=== PATIENT | female | born 1995 | race Caucasian/White ===

== ENCOUNTER 2016-06-13 10:23 | Emergency (ER) | payer OTHER ==
[2016-06-13 13:19] VITALS: BP 112/79
--- NOTE | 2016-06-13 13:57 | UC ---
Frederick Stringer Billy, scribed for Lori Perez DO on 06/13/16 at 1256 . General HPI - HPI Summary HPI Summary: Patient is a 21 year-old female coming to [facility] presenting with flu-like symptoms starting 5 days ago. Patient states that her symptoms began with nasal congestion and nonproductive chest cough. The following day, she developed a subjective fever, diffuse myalgia, nasal congestion, rhinorrhea, sore throat, and frontal headache. She also reports SOB, stating that her cough is worse with deep breaths. Sore throat is worse with swallowing. She states that she began to feel nauseated this morning, and had an episode of emesis after coughing. She denies any ear pain, or hemoptysis. Denies any abdominal pain or diarrhea. Patient has taken Tylenol for her symptoms, but without any improvement. She states she has not had any recent flu vaccines. Patient is a smoker, smoking 1 PPD. Patient admits to having suicidal ideation and plans to do so yesterday. She states that she has had recent stressors in "life and school." She lives with her friend. States that she knows she needs help but doesnt know who to talk to. is agreaable with transfer to ed for psych eval. - History of Current Complaint Chief Complaint: UCGeneralIllness Stated Complaint: COUGH Time Seen by Provider: 06/13/16 12:36 Hx Obtained From: Patient Onset/Duration: Gradual Onset, Lasting Days, Still Present Timing: Constant Onset Severity: Moderate Current Severity: Moderate Pain Location at: headache, sore throat, diffuse myalgia Aggravating: cough is worse with deep breaths, sore throat worse with swallowing Alleviating: nothing Associated Signs & Symptoms: Positive: Cough, Diaphoresis, Fever, Headache, Nausea, SOB, Vomiting, Other - diffuse myalgia, nasal congestion, rhinorrhea, sore throat, fatigue. Negative: Abdominal Pain, Back Pain, Chest Pain, Diarrhea , Dysuria, Hematemesis, Hemoptysis - Allergy/Home Medications Allergies/Adverse Reactions: Allergies Allergy/AdvReac Type Severity Reaction Status Date / Time Latex Allergy Rash Verified 06/13/16 12:03 Home Medications: Home Medications Acetaminophen [Extra Strength Acetaminop] 2 tab PO PRN 06/13/16 [History] Unknown Antibiotic 06/13/16 [History] PMH/Surg Hx/FS Hx/Imm Hx Previously Healthy: Yes Endocrine History Of: Denies: Diabetes, Thyroid Disease Cardiovascular History Of: Denies: Cardiac Disorders, Hypertension Respiratory History Of: Denies: COPD, Asthma GI/ History Of: Denies: Ulcer - Surgical History Surgical History: Yes Surgery Procedure, Year, and Place: Appendectomy, T & A - Family History Known Family History: Positive: Hypertension, Diabetes - Social History Occupation: Student Alcohol Use: Occasionally Alcohol Amount: couple times per month Substance Use Type: Marijuana Smoking Status (MU): Heavy Every Day Tobacco Smoker Type: Cigarettes Amount Used/How Often: 1 ppd Household Exposure Type: Cigarettes Cessation Counseling: Counseled 3+Min - 10 Min - Immunization History Most Recent Influenza Vaccination: season Review of Systems Constitutional: Fever, Fatigue Skin: Negative Eyes: Negative ENT: Sore Throat, Nasal Discharge Respiratory: Shortness Of Breath, Cough Cardiovascular: Negative Gastrointestinal: Vomiting, Other - nauseated Genitourinary: Negative Motor: Negative Neurovascular: Negative Musculoskeletal: Myalgia Neurological: Headache Psychological: Other - suicidal ideation and planning All Other Systems Reviewed And Are Negative: Yes Physical Exam Triage Information Reviewed: Yes Appearance: Well-Appearing, No Pain Distress, Well-Nourished Vital Signs: Initial Vital Signs Temp 100.0 F 06/13/16 11:50 Pulse 102 06/13/16 11:50 Resp 19 06/13/16 11:50 BP 123/83 06/13/16 11:50 Pulse Ox 100 06/13/16 11:50 Vital Signs Reviewed: Yes Eyes: Positive: Conjunctiva Clear. Negative: Discharge ENT: Positive: Hearing grossly normal, Pharyngeal erythema, Nasal congestion, TMs normal, Other: - Palette is symmetrical. Sinus tenderness over the maxillary sinuses.. Negative: Muffled/hoarse voice Neck: Positive: Supple, Tenderness @, Enlarged Nodes @ - cervical Respiratory: Positive: Lungs clear, Normal breath sounds, No respiratory distress, No accessory muscle use, Expiration - Prolonged expiration. Cardiovascular: Positive: RRR, No Murmur Musculoskeletal Exam: Normal Neurological: Positive: Alert, Muscle Tone Normal Psychological: Positive: Age Appropriate Behavior, Consolable - Tearful but consolable. Overwhelmed. Skin Exam: Normal Course/Dx - Differential Dx - Multi-Symptom Provider Diagnoses: sinusitis, bronchospasm - Physician Notifications Discussed Patient Care With: INDER Simental ([facility]) @ [id number]: accepts transfer to the ED. Instructed by Provider To: Transfer Discharge - Discharge Plan Condition: Stable Disposition: TRANS HIGHER LVL OF CARE FAC Prescriptions: Albuterol HFA INHALER* [Ventolin HFA Inhaler*] 2 puff INH Q4H PRN #1 mdi PRN Reason: Sob/Wheezing Amoxicillin/Clavulanate TAB* [Augmentin TAB 875*] 875 mg PO BID #20 tab guaiFENesin ER TAB [Mucinex*] 600 mg PO BID PRN #1 box PRN Reason: Cough Patient Education Materials: Sinusitis (ED), Bronchospasm (ED) Referrals: Nirali Miller DO [Primary Care Provider] - (FOLLOW UP IN 3-5 DAYS IF NOT IMPROVING.) Additional Instructions: TRY USING THE NETTI POT IN THE MORNINGS DISCUSSED. YOU MUST ALWAYS USE CLEAN WATER. REMEMBER, POSTURE IS AN IMPORTANT FACTOR IN SINUS DRAINAGE. MOVE YOUR NECK, BREATHE. INHALED BRONCHODILATORS: You have received a prescription for an inhaled bronchodilator -- a medication which stimulates the airways in the lung to dilate. This improves the flow of air in asthma, bronchitis, and emphysema. These medicines have some similarity to adrenaline, and can cause similar side effects: shakiness, racing heart, and a sense of nervousness. These side effects decrease with time. Contact your doctor if these side effects are severe. Do not over-use the medicine. Too-frequent use of the inhaler may make it ineffective. Call your doctor if the inhaler is not controlling your symptoms at the prescribed doses. EXPECTORANT MEDICATION: An expectorant medicine has been prescribed. This type of drug makes mucous thinner, helping the sinuses, nose, and bronchial tubes to remain free of pus and mucous. Expectorants make a cough less severe and more comfortable, and help infected sinuses drain. In general, antihistamines defeat the purpose of the expectorant by making mucous thicker. They should be avoided unless specifically recommended by your physician. ANTIBIOTICS ARE NOT CURRENTLY INDICATED FOR YOUR CONDITION. HOWEVER IF YOUR SYMPTOMS WORSEN OR PERSIST FOR MORE THAN 2-4 DAYS, YOU CAN START THE FOLLOWING ANTIBIOTIC: AUGMENTIN: Augmentin is a mixture of amoxicillin and clavulanate. Amoxicillin is a member of the penicillin family. It covers the germs likely to cause ear, bronchial, and urinary infections better than plain penicillin. The addition of clavulanate allows it to cover staph infections of the skin, as well as resistant cases of ear and sinus infections. Your physician has chosen Augmentin for you because of the special nature of your situation. Augmentin is best taken with meals. Nausea after taking the medication is rare, but can occur. Diarrhea can occur, particularly in small children. Vaginal yeast infections, and oral thrush in infants are also common. Contact your physician if these problems occur. Allergy to penicillins is common. If you have had an allergic reaction to any drug of the penicillin family, you should never take any other penicillin. Notify your doctor at once if you develop hives, shortness of breath, swelling, or faintness. ANY TIME YOU TAKE AN ANTIBIOTIC, IT IS IMPORTANT TO REPLENISH THE BODY'S BALANCE OF "GOOD" BACTERIA BY EATING HIGH QUALITY CULTURED FOOD SUCH YOGURT, SAURKRAUT OR LOIS CHI AND/OR TAKING A PROBIOTIC SUPPLEMENT. The documentation as recorded by the Frederick campa Billy accurately reflects the service I personally performed and the decisions made by , Lori Perez DO.
== END 2016-06-13 13:44 | disposition short-term general hospital (02) ==
LOC: UCEAST 10:23
DX: J32.9 Chronic sinusitis, unspecified (principal); J98.01 Acute bronchospasm; F17.210 Nicotine dependence, cigarettes, uncomplicated
CPT/HCPCS: 87502; 87651; 99213; G0463

== ENCOUNTER → 2016-06-13 14:09 | Emergency (ER) | payer OTHER ==
[~2016-06-13 14:09] MED LIST: Albuterol HFA INHALER* 8 gm MDI INH PRN; Amoxicillin/Clavulanate TAB* 875 MG PO SCH; Mouth Piece, Nicotine* 1 EACH CARTRIDGE INH PRN; Nicotine Inhaler* 10 MG AMP INH PRN; guaiFENesin ER TAB 600 MG PO ONE
[2016-06-13 14:55] LABS: Hematocrit 38 % (35-47); Hemoglobin 12.9 g/dl (12.0-16.0); Mean Corpuscular HGB Conc 33 g/dl (31-36); Mean Corpuscular Hemoglobin 30 pg (27-31); Mean Corpuscular Volume 91 fL (80-97); Mean Platelet Volume 8 um3 (7.4-10.4); Red Blood Count 4.25 10^6/ul (4.0-5.4); Red Cell Distribution Width 13 % (10.5-15); White Blood Count 5.5 10^3/ul (3.5-10.8)
[2016-06-13 15:13] LABS: ALT 15 U/L (7-52); AST 20 U/L (13-39); Albumin 4.5 g/dL (3.2-5.2); Alkaline Phosphatase 55 U/L (34-104); Anion Gap 4 mmol/L (2-11); BUN/Creatinine Ratio 9.8 (8-20); Blood Urea Nitrogen 6 mg/dL (6-24); CO2 Carbon Dioxide 27 mmol/L (22-32); Calcium 9.5 mg/dL (8.6-10.3); Chloride 105 mmol/L (101-111); EGFR African American 160.8 (>60); Globulin 2.8 g/dL (2-4); Glucose 96 mg/dL (70-100); Potassium 3.9 mmol/L (3.5-5.0); Sodium 136 mmol/L (133-145); Total Protein 7.3 g/dL (6.4-8.9)
[2016-06-13 15:23] LABS: Acetaminophen < 15 mcg/mL; Alcohol < 10 mg/dL (<10); Salicylate < 2.50 mg/dL (<30)
[2016-06-13 15:32] LABS: TSH (Thyroid Stimulating Horm) 2.57 mcIU/mL (0.34-5.60)
[2016-06-13 16:15] VITALS: BP 127/57
[2016-06-13 17:51] LABS: Urine Bacteria Absent (Absent); Urine Bilirubin Negative (Negative); Urine Glucose Negative (Negative); Urine Nitrite Negative (Negative)
[2016-06-13 18:00] LABS: Benzodiazepine Urine Screen None Detected (None Detect)
--- NOTE | 2016-07-13 21:12 | ED ---
Jett Stringer Aidan, scribed for Felipe Bae MD on 06/13/16 at 1451 . Psychiatric Complaint - HPI Summary HPI Summary: 21 y/o female presents to the ED with a request to be evaluated by mental health. She denies having had any drugs or alcohol. Additionally, the patient has a complaint of sinnusitis - History Of Current Complaint Chief Complaint: EDMentalHealth Time Seen by Provider: 06/13/16 14:24 Hx Obtained From: Patient Hx Last Menstrual Period: 06/11/16 ?: No Onset/Duration: Sudden Onset, Still Present Timing: Intermittent Episode Lasting Severity Initially: Moderate Severity Currently: Moderate Character: Depressed Aggravating Factor(s): Other - unknown Alleviating Factor(s): Other - unknown Associated Signs And Symptoms: Negative: Negative - sinnusitis - Risk Factor(s) Completed Suicide Risk Factors: White [place] - Allergies/Home Medications Allergies/Adverse Reactions: Allergies Allergy/AdvReac Type Severity Reaction Status Date / Time Latex Allergy Rash Verified 06/13/16 12:03 PMH/Surg Hx/FS Hx/Imm Hx Endocrine/Hematology History: Denies: Hx Diabetes, Hx Thyroid Disease Cardiovascular History: Denies: Hx Hypertension Respiratory History: Denies: Hx Asthma, Hx Chronic Obstructive Pulmonary Disease (COPD) GI History: Denies: Hx Ulcer - Surgical History Surgery Procedure, Year, and Place: Appendectomy, T & A Infectious Disease History: Reports: History Other Infectious Disease - [place] Denies: Hx Clostridium Difficile, Hx Hepatitis, Hx Human Immunodeficiency Virus (HIV), Hx of Known/Suspected MRSA, Hx Shingles, Hx Tuberculosis, Hx Known/ Suspected VRE, Hx Known/Suspected VRSA, Traveled Outside the in Last 30 Days - Family History Known Family History: Positive: None, Hypertension, Diabetes - Social History Alcohol Use: Occasionally Alcohol Amount: couple times per month Substance Use Type: Reports: Marijuana Smoking Status (MU): Heavy Every Day Tobacco Smoker Type: Cigarettes Amount Used/How Often: 1 ppd Review of Systems Constitutional: Negative Eyes: Negative ENT: Other - sinnusitis Cardiovascular: Negative Respiratory: Negative Gastrointestinal: Negative Genitourinary: Negative Musculoskeletal: Negative Skin: Negative Neurological: Negative Positive: Depressed All Other Systems Reviewed And Are Negative: Yes Physical Exam Triage Information Reviewed: Yes Vital Signs On Initial Exam: Initial Vitals Temp Pulse Resp BP Pulse Ox 99.6 F 81 18 127/57 96 06/13/16 16:13 06/13/16 16:13 06/13/16 16:13 06/13/16 16:13 06/13/16 16:13 Appearance: Positive: Well-Appearing, No Pain Distress Skin: Positive: Warm, Skin Color Reflects Adequate Perfusion, Dry Head/Face: Positive: Normal Head/Face Inspection Eyes: Positive: EOMI, MELONY ENT: Positive: Normal ENT inspection Neck: Positive: Supple, Nontender Respiratory/Lung Sounds: Positive: Clear to Auscultation, Breath Sounds Present Cardiovascular: Positive: RRR Abdomen Description: Positive: Nontender, Soft Bowel Sounds: Positive: Present Musculoskeletal: Positive: Normal, Strength/ROM Intact Neurological: Positive: Normal, Sensory/Motor Intact, Alert, Oriented to Person Place, Time Psychiatric: Positive: Normal, Depressed. Negative: Affect/Mood Appropriate Diagnostics - Vital Signs Vital Signs Temp Pulse Resp BP Pulse Ox 06/13/16 16:13 99.6 F 81 18 127/57 96 - Laboratory Lab Results: Lab Results 06/13/16 06/13/16 06/13/16 Range/Units 14:38 14:38 17:30 WBC 5.5 (3.5-10.8) 10^3/ul RBC 4.25 (4.0-5.4) 10^6/ul Hgb 12.9 (12.0-16.0) g/dl Hct 38 (35-47) % MCV 91 (80-97) fL MCH 30 (27-31) pg MCHC 33 (31-36) g/dl RDW 13 (10.5-15) % Plt Count 241 (150-450) 10^3/ul MPV 8 (7.4-10.4) um3 Neut % (Auto) 50.0 (38-83) % Lymph % (Auto) 39.6 (25-47) % [place] % (Auto) 8.8 (1-9) % Eos % (Auto) 0.8 (0-6) % Baso % (Auto) 0.8 (0-2) % Absolute Neuts (auto) 2.8 (1.5-7.7) 10^3/ul Absolute Lymphs (auto) 2.2 (1.0-4.8) 10^3/ul Absolute Monos (auto) 0.5 (0-0.8) 10^3/ul Absolute Eos (auto) 0 (0-0.6) 10^3/ul Absolute Basos (auto) 0 (0-0.2) 10^3/ul Absolute Nucleated RBC 0 10^3/ul Nucleated RBC % 0 Sodium 136 (133-145) mmol/L Potassium 3.9 (3.5-5.0) mmol/L Chloride 105 (101-111) mmol/L Carbon Dioxide 27 (22-32) mmol/L Anion Gap 4 (2-11) mmol/L BUN 6 (6-24) mg/dL Creatinine 0.61 (0.51-0.95) mg/dL Est GFR ( Amer) 160.8 (>60) Est GFR (Non-Af Amer) 125.0 (>60) BUN/Creatinine Ratio 9.8 (8-20) Glucose 96 (70-100) mg/dL Calcium 9.5 (8.6-10.3) mg/dL Total Bilirubin 0.30 (0.2-1.0) mg/dL AST 20 (13-39) U/L ALT 15 (7-52) U/L Alkaline Phosphatase 55 (34-104) U/L Total Protein 7.3 (6.4-8.9) g/dL Albumin 4.5 (3.2-5.2) g/dL Globulin 2.8 (2-4) g/dL Albumin/Globulin Ratio 1.6 (1-3) TSH 2.57 (0.34-5.60) mcIU/mL Beta HCG, Quant < 0.60 mIU/mL Urine Color Red A Urine Appearance Cloudy Urine pH 6.0 (5-9) Ur Specific [place] 1.023 (1.010-1.030) Urine Protein 2+(100 mg/dl) H (Negative) Urine Ketones Negative (Negative) Urine Blood 3+ H (Negative) Urine Nitrate Negative (Negative) Urine Bilirubin Negative (Negative) Urine Urobilinogen Negative (Negative) Ur Leukocyte Esterase 2+ H (Negative) Urine WBC (Auto) 3+(>20/hpf) H (Absent) Urine RBC (Auto) 3+(>10/hpf) H (Absent) Ur Squamous Epith Cells Present H (Absent) Urine Bacteria Absent (Absent) Urine Glucose Negative (Negative) Salicylates < 2.50 (<30) mg/dL Urine Opiates Screen (None Detect) Acetaminophen < 15 mcg/mL Ur Barbiturates Screen (None Detect) Ur Phencyclidine Scrn (None Detect) Ur Amphetamines Screen (None Detect) U Benzodiazepines Scrn (None Detect) Urine Cocaine Screen (None Detect) U Cannabinoids Screen (None Detect) Serum Alcohol < 10 (<10) mg/dL 06/13/16 Range/Units 17:30 WBC (3.5-10.8) 10^3/ul RBC (4.0-5.4) 10^6/ul Hgb (12.0-16.0) g/dl Hct (35-47) % MCV (80-97) fL MCH (27-31) pg MCHC (31-36) g/dl RDW (10.5-15) % Plt Count (150-450) 10^3/ul MPV (7.4-10.4) um3 Neut % (Auto) (38-83) % Lymph % (Auto) (25-47) % [place] % (Auto) (1-9) % Eos % (Auto) (0-6) % Baso % (Auto) (0-2) % Absolute Neuts (auto) (1.5-7.7) 10^3/ul Absolute Lymphs (auto) (1.0-4.8) 10^3/ul Absolute Monos (auto) (0-0.8) 10^3/ul Absolute Eos (auto) (0-0.6) 10^3/ul Absolute Basos (auto) (0-0.2) 10^3/ul Absolute Nucleated RBC 10^3/ul Nucleated RBC % Sodium (133-145) mmol/L Potassium (3.5-5.0) mmol/L Chloride (101-111) mmol/L Carbon Dioxide (22-32) mmol/L Anion Gap (2-11) mmol/L BUN (6-24) mg/dL Creatinine (0.51-0.95) mg/dL Est GFR ( Amer) (>60) Est GFR (Non-Af Amer) (>60) BUN/Creatinine Ratio (8-20) Glucose (70-100) mg/dL Calcium (8.6-10.3) mg/dL Total Bilirubin (0.2-1.0) mg/dL AST (13-39) U/L ALT (7-52) U/L Alkaline Phosphatase (34-104) U/L Total Protein (6.4-8.9) g/dL Albumin (3.2-5.2) g/dL Globulin (2-4) g/dL Albumin/Globulin Ratio (1-3) TSH (0.34-5.60) mcIU/mL Beta HCG, Quant mIU/mL Urine Color Urine Appearance Urine pH (5-9) Ur Specific [place] (1.010-1.030) Urine Protein (Negative) Urine Ketones (Negative) Urine Blood (Negative) Urine Nitrate (Negative) Urine Bilirubin (Negative) Urine Urobilinogen (Negative) Ur Leukocyte Esterase (Negative) Urine WBC (Auto) (Absent) Urine RBC (Auto) (Absent) Ur Squamous Epith Cells (Absent) Urine Bacteria (Absent) Urine Glucose (Negative) Salicylates (<30) mg/dL Urine Opiates Screen None detected (None Detect) Acetaminophen mcg/mL Ur Barbiturates Screen None detected (None Detect) Ur Phencyclidine Scrn None detected (None Detect) Ur Amphetamines Screen None detected (None Detect) U Benzodiazepines Scrn None detected (None Detect) Urine Cocaine Screen None detected (None Detect) U Cannabinoids Screen Presumptive positive H (None Detect) Serum Alcohol (<10) mg/dL Result Diagrams: 06/13/16 14:38 06/13/16 14:38 Lab Statement: Any lab studies that have been ordered have been reviewed, and results considered in the medical decision making process. Course/Dx - Course Assessment/Plan: DISCHARGE HOME STABLE AFTER MHE - Differential Dx/Clinical Impression Provider Diagnosis: Mental health problem Discharge - Discharge Plan Condition: Stable Disposition: HOME Patient Education Materials: Depression (ED), Suicide Prevention for Adults (ED ) Referrals: Nirali Miller DO [Primary Care Provider] - Additional Instructions: FOLLOW-UP INSTRUCTIONS: Patient referred to [facility] during walk-in hours on June 14, from 9 a.m. to 2 p.m. at [address], [place] [address]. . Patient referred to [facility]; and counselor Itzel Hubbard, upon Patient's return to school. Telephone: . Patient referred to [facility] [place]. [address] [place] [address]. . In the event of threats or violence towards the Patient, the [place] [employer] should be notified of immediately at [address] [place] [address]. . Reports of domestic violence may also be reported to [facility] Office (Monday - Monday, 01-10): [phone], 24-Hour Hotline: [phone]. [address] [place], [place] [address] Patient should follow-up with her primary care physician should her medical symptoms worsen or continue for longer than a week. The documentation as recorded by the Jett campa Aidan accurately reflects the service I personally performed and the decisions made by me, Felipe Bae MD.
== END | disposition home or self-care (01) ==
LOC: ED 14:09
DX: Z00.8 Encounter for other general examination (principal); F32.9 Major depressive disorder, single episode, unspecified; F17.210 Nicotine dependence, cigarettes, uncomplicated
CPT/HCPCS: 36415; 80053; 80307; 80320; 80329; 81003; 81015; 84443; 84702; 85025; 87086; 99283; A9270-GY; G0480

== ENCOUNTER → 2016-08-29 07:58 | Emergency (ER) | payer OTHER ==
[~2016-08-29 07:58] MED LIST changes: -Albuterol HFA INHALER* 8 gm MDI INH PRN; -Amoxicillin/Clavulanate TAB* 875 MG PO SCH; -Mouth Piece, Nicotine* 1 EACH CARTRIDGE INH PRN; -Nicotine Inhaler* 10 MG AMP INH PRN; +ValACYclovir (*) 1 GM TAB PO ONE; -guaiFENesin ER TAB 600 MG PO ONE
--- NOTE | 2016-08-29 08:35 | ED ---
GI/ HPI - HPI Summary HPI Summary: 21F presents with lesions on her labia for a week. She states the lesions hurt and are itchy. She states she has pain in her inguinal region. She denies any abdominal pain, nausea or vomiting. She denies any fevers. She states she has never had these lesions before. She admits to vaginal discharge. She denies any urgency, frequency, or dysuria. She did have unprotected sex a week ago. She has the copper IUD for control. Her last menstrual period was two weeks ago. - History of Current Complaint Chief Complaint: EDUrogenitalProblems Time Seen by Provider: 08/29/16 08:06 Stated Complaint: BUMPS ON VAG Pain Intensity: 3 - Allergy/Home Medications Allergies/Adverse Reactions: Allergies Allergy/AdvReac Type Severity Reaction Status Date / Time Latex Allergy Rash Verified 06/13/16 12:03 PMH/Surg Hx/FS Hx/Imm Hx Endocrine/Hematology History: Denies: Hx Diabetes, Hx Thyroid Disease Cardiovascular History: Denies: Hx Hypertension Respiratory History: Denies: Hx Asthma, Hx Chronic Obstructive Pulmonary Disease (COPD) GI History: Denies: Hx Ulcer Psychiatric History: Denies: Hx Eating Disorder, Hx of Violent Episodes Against Others - Surgical History Surgery Procedure, Year, and Place: Appendectomy, T & A Infectious Disease History: No Infectious Disease History: Reports: History Other Infectious Disease - [place] Denies: Hx Clostridium Difficile, Hx Hepatitis, Hx Human Immunodeficiency Virus (HIV), Hx of Known/Suspected MRSA, Hx Shingles, Hx Tuberculosis, Hx Known/ Suspected VRE, Hx Known/Suspected VRSA, Traveled Outside the [place] in Last 30 Days - Family History Known Family History: Positive: None, Hypertension, Diabetes - Social History Alcohol Use: Occasionally Alcohol Amount: couple times per month Substance Use Type: Reports: Cocaine, Marijuana Substance Use Comment - Amount & Last Used: COCAINE LAST SUMMER Smoking Status (MU): Heavy Every Day Tobacco Smoker Type: Cigarettes Amount Used/How Often: 1 ppd Review of Systems Negative: Fever Negative: Chest Pain Negative: Shortness Of Breath Positive: other - vaginal lesions and discharge All Other Systems Reviewed And Are Negative: Yes Physical Exam Triage Information Reviewed: Yes Vital Signs On Initial Exam: Initial Vitals Temp Pulse Resp BP Pulse Ox 98.2 F 96 18 114/59 100 08/29/16 07:59 08/29/16 07:59 04/24/17 07:59 08/29/16 07:59 08/29/16 07:59 Vital Signs Reviewed: Yes Appearance: Positive: Well-Appearing Skin: Positive: Warm, Dry Eyes: Positive: Normal, Conjunctiva Clear Respiratory/Lung Sounds: Positive: Clear to Auscultation, Breath Sounds Present Cardiovascular: Positive: Normal, RRR Abdomen Description: Positive: Nontender, Soft, Other: - tender inguinal lymph nodes palpation Bowel Sounds: Positive: Present Pelvic Exam: Positive: speculum exam normal, bimanual exam normal, no cerv. motion tender, other - red small lesions presents on labia. Negative: discharge Diagnostics - Vital Signs Vital Signs Temp Pulse Resp BP Pulse Ox 08/29/16 08:16 99.0 F 88 15 128/90 100 08/29/16 07:59 98.2 F 96 18 114/59 100 - Laboratory Lab Statement: Any lab studies that have been ordered have been reviewed, and results considered in the medical decision making process. GIGU Course/Dx - Course Course Of Treatment: 21F presents wtih lesions to labia for a week. has never had these symptoms before. States the area is burning and itchy. did have unprotected sex. admits to vaginal discharge. denies any abdominal pain, n/v. on exam has small red lesions present on labia consistent with herpes simplex. no vaginal discharge noted on exam. no cervical motion tenderness. obtained cultures. will treat with valacyclovir for intial HSV outbreak. patient understands and agrees with plan - Diagnoses Differential Diagnoses - Female: Pelvic Inflammatory Disease, STD, Urinary Tract Infection Provider Diagnoses: Primary genital herpes simplex infection Discharge - Discharge Plan Condition: Good Disposition: HOME Prescriptions: ValACYclovir (*) [Valtrex 1 GM(*)] 1 gm PO BID #19 tab Patient Education Materials: Genital Herpes Simplex (ED) Referrals: Nirali Miller DO [Primary Care Provider] - Additional Instructions: Take antiviral twice a day for 10 days, first dose given in ED Do not have sex while lesions are present Take Tylenol or ibuprofen for the pain every 6 hours Follow up with primary if lesions occur again Return to ED if develop any new or worsening symptoms
[2016-08-29 09:10] VITALS: BP 110/48
--- NOTE | 2016-08-30 07:27 | PN ---
Progress Note - Progress Note Note: Patient vaginal cultures grew garnderella but patient was not having symptoms and no discharge noted on exam, so no further action needed.
== END | disposition home or self-care (01) ==
LOC: ED 07:58
DX: A60.00 Herpesviral infection of urogenital system, unspecified (principal); F17.210 Nicotine dependence, cigarettes, uncomplicated
CPT/HCPCS: 87480; 87491; 87510; 87591; 87661; 99282; A9270-GY

== ENCOUNTER 2018-03-11 11:27 | Emergency (ER) | payer OTHER ==
--- NOTE | 2018-03-11 12:16 | ED ---
Throat Pain/Nasal Congestion - HPI Summary HPI Summary: Pt is a 22 y/o female who presents to the ED c/o an abscess. She states shes had a painful 7/10 abscess on the roof of her mouth for 2-3 days. The abscess has continued to grow in size, and she has difficulty eating and talking. Pt tried to pop it, but it made the abscess worse. She states that she had a tooth above her canine which was removed several years ago, and ever since it has made the area have issues. Pt denies any fever. - History of Current Complaint Chief Complaint: EDRashSkinAbscess Time Seen by Provider: 03/11/18 11:57 Hx Obtained From: Patient Onset/Duration: Gradual Onset, Lasting Days - 2-3, Worse Since Severity: Moderate - 7/10 Cough: None Related History: Other (Noted In Comments) - Canine removed - Allergies/Home Medications Allergies/Adverse Reactions: Allergies Allergy/AdvReac Type Severity Reaction Status Date / Time Latex, Natural Rubber Allergy Severe Rash Verified 01/07/18 11:23 PMH/Surg Hx/FS Hx/Imm Hx Endocrine/Hematology History: Denies: Hx Diabetes, Hx Thyroid Disease Cardiovascular History: Denies: Hx Hypertension Respiratory History: Denies: Hx Asthma, Hx Chronic Obstructive Pulmonary Disease (COPD) GI History: Denies: Hx Ulcer Psychiatric History: Reports: Hx Anxiety, Hx Depression Denies: Hx Eating Disorder, Hx of Violent Episodes Against Others - Surgical History Surgery Procedure, Year, and Place: Appendectomy, T & A Infectious Disease History: No Infectious Disease History: Reports: History Other Infectious Disease - [place] Denies: Hx Clostridium Difficile, Hx Hepatitis, Hx Human Immunodeficiency Virus (HIV), Hx of Known/Suspected MRSA, Hx Shingles, Hx Tuberculosis, Hx Known/ Suspected VRE, Hx Known/Suspected VRSA, Traveled Outside the [place] in Last 30 Days - Family History Known Family History: Positive: Hypertension, Diabetes, Respiratory Disease - brother has asthma , Other - DVT - Social History Alcohol Use: Occasionally Alcohol Amount: couple times per month Hx Substance Use: Yes Substance Use Type: Reports: Cocaine, Marijuana Substance Use Comment - Amount & Last Used: COCAINE LAST SUMMER Hx Tobacco Use: Yes Smoking Status (MU): Heavy Every Day Tobacco Smoker Type: Cigarettes Amount Used/How Often: 1 ppd Review of Systems Negative: Fever Positive: Other - Abscess on roof on mouth All Other Systems Reviewed And Are Negative: Yes Physical Exam - Summary Physical Exam Summary: Appearance: Well appearing, no pain distress Skin: warm, dry, reflects adequate perfusion Head/face: normal Eyes: EOMI, MELONY ENT: mucous membranes moist, fluctuant mass on lingual side of right upper canine Neck: supple, non-tender Respiratory: CTA, breath sounds present Cardiovascular: RRR, pulses symmetrical Abdomen: non-tender, soft Bowel Sounds: present Musculoskeletal: normal, strength/ROM intact Neuro: normal, sensory motor intact, A&Ox3 Triage Information Reviewed: Yes Vital Signs On Initial Exam: Initial Vitals Temp Pulse Resp BP Pulse Ox 99.0 F 79 16 124/63 99 03/11/18 11:37 03/11/18 11:37 03/11/18 11:37 03/11/18 11:37 03/11/18 11:37 Vital Signs Reviewed: Yes Procedures - Procedure Summary Procedure Summary: Abscess drainage: 1 cc 1% lidocaine for inferior orbital nerve block. 18 gauge aspiration of purulent material from abscess R roof of mouth. Tolerated well without complication. Diagnostics - Vital Signs Vital Signs Temp Pulse Resp BP Pulse Ox 03/11/18 11:37 99.0 F 79 16 124/63 99 - Laboratory Lab Statement: Any lab studies that have been ordered have been reviewed, and results considered in the medical decision making process. EENT Course/Dx - Course Course Of Treatment: Abscess on the lingual surface of the right upper canine in the hard palate. Block performed and incision and drainage got out. On material. Started on antibiotics. Follow-up with dental. - Diagnoses Provider Diagnoses: Hard palate abscess Discharge - Sign-Out/Discharge Documenting (check all that apply): Patient Departure - Discharge - Discharge Plan Condition: Improved Disposition: HOME Prescriptions: Chlorhexidine Gluconate [Periogard] 10 ml .SEE ORDER QID #1 bottle Clindamycin Cap(NF) [Clindamycin Cap 300 mg Cap(NF)] 300 mg PO TID #21 cap Naproxen [Naproxen 500 mg tab] 500 mg PO BID PRN #10 tablet.dr DOUGH[place] Reason: Pain Patient Education Materials: Dental Abscess (ED) Forms: *Work Release Referrals: Lyle Whyte CUTTER APPRENTICE HAND [Primary Care Provider] - Additional Instructions: Call Call To schedule follow-up with your dentist. Massage out any infection. Return with worsening, uncontrolled pain, new symptoms or other concerns. - Billing Disposition and Condition Condition: IMPROVED Disposition: Home - Attestation Statements Document Initiated by Scribe: Yes Documenting Scribe: Klaudia Espitia Provider For Whom Brandenibe is Documenting (Include Credential): Ciro Nunes MD Scribe Attestation: IKlaudia, scribed for Ciro Nunes MD on 03/11/18 at 1855. Scribe Documentation Reviewed: Yes Provider Attestation: The documentation as recorded by the Klaudia campa accurately reflects the service I personally performed and the decisions made by me, Ciro Nunes MD
[2018-03-11 12:34] VITALS: BP 00/00
== END 2018-03-11 12:32 | disposition home or self-care (01) ==
LOC: ED 11:27
DX: K12.2 Cellulitis and abscess of mouth (principal); Z91.040 Latex allergy status; F17.210 Nicotine dependence, cigarettes, uncomplicated
CPT/HCPCS: 99281

== ENCOUNTER 2018-07-04 15:05 | Emergency (ER) | payer SELFPAY ==
--- OUTSIDE RECORDS SUMMARY | 2018-07-04 15:27 | XMS REPORT | Continuity of Care Document ---
:1995 External Reference #:[id number] Author Name Zoila Schneider Care Team Providers Name Role Phone Ion Hills MD Primary Care Physician Unavailable Payers Date Identification Numbers Payment Provider Subscriber Policy Number: [id number] [employer]av[employer] Group Number: [id number] [address] PayID: [id number] [place] [address] Advance Directives Description No Information Available Problems Date Description Provider Status Onset: 08/09/2017 Anxiety state Aydee Melvin NP Active Onset: 08/09/2017 Gastroesophageal reflux disease Aydee Melvin NP Active Family History Date Family Member(s) Observation Comments General Diabetes General Heart Disease Father Depression /Anxiety Smoker Mother Depression Anxiety Cholecystectomy Social History Type Date Description Comments Sex Unknown Marital Status Single Lives With Family Occupation Currently Working dishes at [employer] Tobacco Use Start: Unknown Light tobacco smoker (10 or fewer cigarettes/day) Smoking Status Reviewed: 06/26/18 Light tobacco smoker (10 or fewer cigarettes/day) ETOH Use Occasionally consumes 1/wk alcohol Tobacco Use Start: Unknown Patient is a current smoker, smokes every day Recreational Drug Use Current Drug User THC for sleep Exercise Type/Frequency Exercises regularly Allergies, Adverse Reactions, Alerts Description No Known Drug Allergies Medications Medication Date Status Form Strength Qnty SIG Indications Ordering Provider Depakote Active Tablets DR 250mg 60tabs one po F31.9 Tri 019 bid MD Goldy Nicoderm CQ Active Patches 7mg/24HR 28units one F17.210 Tri 019 24HR every 24 MD Goldy hrs Omeprazole Active Capsules DR 20mg 30caps 1 by K21.9 Tri 018 mouth MD Goldy every day Venlafaxine Hx Tablets 25mg 30tabs 1 by F41.9 Zsofia HCL 018 - mouth Pato, every [employer] 019 day Venlafaxine Hx Tablets 25mg 30tabs 1 by Zsofia HCL 018 - mouth Pato, every [employer] 019 day No Active Hx Unknown Medications 018 - 018 Sertraline HCL Hx Tablets 50mg 30tabs 1/2 tab F41.9 Zsofia 018 - by mouth Pato, for 1 [employer] ENGINE[employer] 019 Week then 1/2 tab every otherr day for 1 week, then d/c Hydrocodone-Ac 0 Hx Tablets 5-325mg 1 by Unknown etaminophen 000 - mouth every 018 4-6 hours prn. Immunizations Description No Information Available Vital Signs Date Vital Result Comment 06/26/2018 1:35pm Height 62 inches 5'2" Weight 109.12 lb Heart Rate 96 /min BP Systolic 119 mmHg BP Diastolic 60 mmHg Body Temperature 99.5 F O2 % BldC Oximetry 99 % BMI (Body Mass Index) 20.0 kg/m2 11/22/2017 3:35pm Height 62 inches 5'2" Weight 105.38 lb Heart Rate 85 /min BP Systolic Sitting 110 mmHg BP Diastolic Sitting 70 mmHg O2 % BldC Oximetry 98 % BMI (Body Mass Index) 19.3 kg/m2 08/09/2017 1:05pm Height 62 inches 5'2" Weight 106.00 lb Heart Rate 96 /min BP Systolic 110 mmHg BP Diastolic 70 mmHg Body Temperature 98.6 F O2 % BldC Oximetry 98 % BMI (Body Mass Index) 19.4 kg/m2 02/11/2015 1:48pm Height 64 inches 5'4" Weight 145.00 lb Pain Level 6 BMI (Body Mass Index) 24.9 kg/m2 Blood Pressure Percentile 0 % Height Percentile 46 % Weight Percentile 78th 01/28/2015 1:23pm Height 64 inches 5'4" Weight 145.00 lb Pain Level 5 BMI (Body Mass Index) 24.9 kg/m2 Blood Pressure Percentile 0 % Height Percentile 46 % Weight Percentile 78th 01/22/2015 3:28pm Height 64 inches 5'4" Weight 145.00 lb Pain Level 6 BMI (Body Mass Index) 24.9 kg/m2 Blood Pressure Percentile 0 % Height Percentile 46 % Weight Percentile 78th Results Description No Information Available Procedures Date Code Description Status 01/22/2015 02277 FX Carpal Bone W/Manipulation Completed Encounters Type Date Location Provider Dx Diagnosis Office Visit 11/22/2017 [facility] Rashidkaron Whyte, F41.9 Anxiety disorder , 3:40p Medicine - [place] [employer] [address] Office Visit 08/09/2017 [facility] Aydee Olegario, F41.9 Anxiety disorder, 1:00p Medicine - [place] [employer] [address] S29.019D Strain of muscle and tendon of unsp wall of thorax, subs K21.9 Gastro-esophageal reflux disease without esophagitis S29.011A Strain of muscle and tendon of front wall of thorax, init S29.012A Strain of muscle and tendon of back wall of thorax, init Plan of Treatment Future Appointment(s):07/24/2018 4:20 pm - Tri Winslow MD at [facility] - [address]06/26/2018 - Tri Winslow MDF31.9 Bipolar disorder, unspecifiedNew Medication:Depakote 250 mg - one po bidComments:1. find a therapist2. start taking magnesium 250mg at bedtime3. take only tablet for the first week,then go up to twice a dayFollow up:4 sirlwN07.210 Nicotine dependence , cigarettes, uncomplicatedNew Medication:Nicoderm CQ 7 mg/24HR - one every 24 hrs
[2018-07-04] MEDS ORDERED: Lidocaine 1%* 5 ML VIAL INJ ONE (15:38)
[2018-07-04 19:26] VITALS: BP 118/62
--- NOTE | 2018-07-05 06:23 | ED ---
Skin Complaint - HPI Summary HPI Summary: Patient is a 23-year-old female who presents emergency department for possible abscess to his left buttocks as well as her right groin. Patient states she's had a painful bump her left buttocks for over one month and then noticed a similar lesion to her right groin times several weeks. Patient states area on her groin has been draining. She denies past medical history. She denies fever , chills, nausea, vomiting. Symptoms are mild in severity. Touching affected area makes symptoms worse. Nothing makes symptoms better. Patient states she is 89 at seen at medical provider for this complaint and has not been on antibiotics or had incision and drainage. - History of Current Complaint Chief Complaint: EDRashSkinAbscess Time Seen by Provider: 07/04/18 15:25 Stated Complaint: LUMPS ON LEGS AND BACK Hx Obtained From: Patient Hx Last Menstrual Period: 06/11/16 Pain Intensity: 2 - Allergy/Home Medications Allergies/Adverse Reactions: Allergies Allergy/AdvReac Type Severity Reaction Status Date / Time Latex, Natural Rubber Allergy Severe Rash Verified 01/07/18 11:23 PMH/Surg Hx/FS Hx/Imm Hx Previously Healthy: Yes Endocrine/Hematology History: Denies: Hx Diabetes, Hx Thyroid Disease Cardiovascular History: Denies: Hx Hypertension Respiratory History: Denies: Hx Asthma, Hx Chronic Obstructive Pulmonary Disease (COPD) GI History: Denies: Hx Ulcer Psychiatric History: Reports: Hx Anxiety, Hx Depression Denies: Hx Eating Disorder, Hx of Violent Episodes Against Others - Surgical History Surgery Procedure, Year, and Place: Appendectomy, T & A Infectious Disease History: No Infectious Disease History: Reports: History Other Infectious Disease - [place] Denies: Hx Clostridium Difficile, Hx Hepatitis, Hx Human Immunodeficiency Virus (HIV), Hx of Known/Suspected MRSA, Hx Shingles, Hx Tuberculosis, Hx Known/ Suspected VRE, Hx Known/Suspected VRSA, Traveled Outside the [place] in Last 30 Days - Family History Known Family History: Positive: Hypertension, Diabetes, Respiratory Disease - brother has asthma , Other - DVT - Social History Occupation: Employed Full-time Lives: With Family Alcohol Use: Occasionally Alcohol Amount: couple times per month Hx Substance Use: Yes Substance Use Type: Reports: Cocaine, Marijuana Substance Use Comment - Amount & Last Used: COCAINE LAST SUMMER Hx Tobacco Use: Yes Smoking Status (MU): Heavy Every Day Tobacco Smoker Type: Cigarettes Amount Used/How Often: 1 ppd Review of Systems Constitutional: Negative Negative: Fever, Chills Gastrointestinal: Negative Negative: Vomiting, Nausea Positive: Other - abscess to right groin and left buttocks Neurological: Negative All Other Systems Reviewed And Are Negative: Yes Physical Exam Triage Information Reviewed: Yes Vital Signs On Initial Exam: Initial Vitals Temp Pulse Resp BP Pulse Ox 98.7 F 100 16 126/58 100 07/04/18 15:18 07/04/18 15:18 07/04/18 15:18 07/04/18 15:18 07/04/18 15:18 Vital Signs Reviewed: Yes Appearance: Positive: Well-Appearing - Pt. sitting on bed in NAD. Mother present. Skin: Positive: Warm, Dry, Other - 1.Noted to the right groin there is a roughly 4 cm oblong shape area of induration, over lying erythema, and a small amount of fluctuance. Small scab in center. No surround erythema or edema. Area does not spread to vaginal region or rectal region. 2. Noted to the anterior aspect of left inner buttocks there is a roughly 4cm area of fluctuance with mild overlying erythema. No drainage. Does note extend to perineum. Head/Face: Positive: Normal Head/Face Inspection Eyes: Positive: Normal, EOMI Neck: Positive: Supple Musculoskeletal: Positive: Normal, Strength/ROM Intact Neurological: Positive: Normal, CN Intact II-III Psychiatric: Positive: Affect/Mood Appropriate Procedures - Incision and Drainage Right Groin Site: R groin. Small amount of purulent material expressed. 1/4 packing placed Anesthesia: Local Instrument(s): Scalpel Packing: Gauze Left Buttocks Site: Large amount of purulent material expressed. Wound packed Anesthesia: Local Instrument(s): Scalpel Packing: Gauze Diagnostics - Vital Signs Vital Signs Temp Pulse Resp BP Pulse Ox 07/04/18 18:00 99 F 81 16 118/62 99 07/04/18 15:18 98.7 F 100 16 126/58 100 - Laboratory Lab Statement: Any lab studies that have been ordered have been reviewed, and results considered in the medical decision making process. Course/Dx - Course Course Of Treatment: Pt. presenting for abscess x 2. Afebrile and well appearing. Abscesses were incised, drained and packed as noted above. Will place on bactrim to cover MRSA. Packing removal in 48 hours. To apply warm compresses. Tylenol or motrin for pain as directed. To f.u with PCP for wound check in 2 days. Advised to return to ER for increased swelling, pain, redness, fever, or if concerned. Pt. understands and agrees with plan. - Differential Diagnoses - Skin Complaint Differential Diagnoses: Abscess, Cellulitis - Diagnoses Provider Diagnoses: Abscess Discharge - Sign-Out/Discharge Documenting (check all that apply): Patient Departure Patient Received Moderate/Deep Sedation with Procedure: No - Discharge Plan Condition: Improved Disposition: HOME Prescriptions: Sulfamethox/Trimethoprim DS* [Bactrim DS 800/160 TAB*] 1 tab PO BID #20 tab Patient Education Materials: Abscess (ED), Incision and Drainage (ED) Forms: *Work Release Referrals: Lyle Whyte QUALITY CONTROL ANALYST [Primary Care Provider] - Additional Instructions: Schedule a follow up appointment with your PCP for wound check Packing removal in 48 hours Apply warm compresses Take antibiotic as directed Tylenol or Motrin for pain as directed Return to ER for fever, increased redness, swelling, or if concerned - Billing Disposition and Condition Condition: IMPROVED Disposition: Home
== END 2018-07-04 18:00 | disposition home or self-care (01) ==
LOC: ED 15:05
DX: L02.214 Cutaneous abscess of groin (principal); L02.31 Cutaneous abscess of buttock; F17.210 Nicotine dependence, cigarettes, uncomplicated
CPT/HCPCS: 10060; 87070; 87205; 87640; 87641; 96374; 99282

== ENCOUNTER → 2018-08-09 17:09 | Emergency (ER) | payer OTHER ==
[~2018-08-09 17:09] MED LIST changes: +Acetaminophen TAB* 325 MG PO ONE; -ValACYclovir (*) 1 GM TAB PO ONE
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
[2018-08-09 18:36] VITALS: BP 109/58
== END | disposition home or self-care (01) ==
LOC: ED 17:09
DX: S06.0X0A Concussion without loss of consciousness, initial encounter (principal); V43.62XA Car passenger injured in collision with other type car in traffic accident, initial encounter; Y92.410 Unspecified street and highway as the place of occurrence of the external cause; F41.9 Anxiety disorder, unspecified; F32.9 Major depressive disorder, single episode, unspecified; F17.210 Nicotine dependence, cigarettes, uncomplicated; Z91.040 Latex allergy status; Z79.899 Other long term (current) drug therapy
CPT/HCPCS: 99282; A9270-GY

== ENCOUNTER 2018-12-17 08:31 | Emergency (ER) | payer SELFPAY ==
[2018-12-17] MEDS ORDERED: diPHENhydraMINE IV* 50 MG/ML 1 ml VIAL (BENADRYL) IV ONE (09:11)
[2018-12-17] MEDS ORDERED: NS 0.9% 1000 ML** 1,000 ML IV ONE (09:11)
[2018-12-17] MEDS ORDERED: Metoclopramide IV* 5 MG/ML 2 ML VIAL IV ONE (09:11)
[2018-12-17 09:29] LABS: ABS Eosinophils 0.1 10^3/ul (0-0.6); ABS Lymphocytes 1.7 10^3/ul (1.0-4.8); ABS Monocytes 0.5 10^3/ul (0-0.8); ABS Neutrophils 6.7 10^3/ul (1.5-7.7); Eosinophil % 0.8 %; Hematocrit 37 % (35-47); Lymphocyte % 18.4 %; Mean Corpuscular HGB Conc 35 g/dL (31-36); Mean Corpuscular Hemoglobin 32 pg (27-31); Mean Corpuscular Volume 93 fL (80-97); Platelet Count 354 10^3/uL (150-450); Red Blood Count 4.01 10^6 /uL (3.70-4.87); Red Cell Distribution Width 13 % (10-15)
[2018-12-17 09:37] LABS: Activated Partial Thrombo Time 30.9 seconds (26.0-38.0); INR 0.94 (0.82-1.09)
[2018-12-17 09:46] LABS: ALT 49 U/L (7-52); AST 56 U/L (13-39); Albumin 4.5 g/dL (3.2-5.2); Albumin/Globulin Ratio 1.7 (1-3); Alkaline Phosphatase 88 U/L (34-104); Anion Gap 6 mmol/L (2-11); BUN/Creatinine Ratio 12.9 (8-20); Blood Urea Nitrogen 8 mg/dL (6-24); CO2 Carbon Dioxide 28 mmol/L (22-32); Calcium 9.6 mg/dL (8.6-10.3); Chloride 105 mmol/L (101-111); EGFR African American 145.6 (>60); EGFR Non-African American 120.4 (>60); Globulin 2.7 g/dL (2-4); Glucose 101 mg/dL (70-100); Potassium 3.8 mmol/L (3.5-5.0); Sodium 139 mmol/L (135-145); Total Protein 7.2 g/dL (6.4-8.9)
[2018-12-17 09:51] LABS: HCG Pregnancy < 0.60 mIU/mL
--- NOTE | 2018-12-17 09:55 | ED ---
Back Pain - HPI Summary HPI Summary: Pt is a 23 y/o F presenting to the ED with a chief complaint of back pain initially onset last week. She states it initially started in her head, but is now located in between her shoulder blades, radiating to her shoulders. She also reports SOB. She denies CP or hx of blood clots, but notes FHx of blood clots. Sx worsened with deep breaths. 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 - History of Current Complaint Chief Complaint: EDShortnessOfBreath Stated Complaint: SEVERE BACK PAIN PER PT Time Seen by Provider: 12/17/18 09:09 Hx Obtained From: Patient Hx Last Menstrual Period: 06/11/16 Onset/Duration: Gradual Onset, Lasting Days, Still Present Onset/Duration: Started Days Ago, Still Present Timing: Constant, Lasting Days Back Pain Location: Is Discrete @ - upper back Severity Initially: Moderate Severity Currently: Severe Pain Intensity: 8 Pain Scale Used: 0-10 Numeric Aggravating Symptom(s): Other - deep breaths Alleviating Symptom(s): Nothing Associated Signs And Symptoms: Positive: Negative - Allergies/Home Medications Allergies/Adverse Reactions: Allergies Allergy/AdvReac Type Severity Reaction Status Date / Time Latex, Natural Rubber Allergy Severe Rash Verified 08/12/18 06:33 PMH/Surg Hx/FS Hx/Imm Hx Previously Healthy: Yes Endocrine/Hematology History: Denies: Hx Diabetes, Hx Thyroid Disease Cardiovascular History: Denies: Hx Hypertension Respiratory History: Denies: Hx Asthma, Hx Chronic Obstructive Pulmonary Disease (COPD) GI History: Denies: Hx Ulcer Sensory History: Denies: Hx Eye Prosthesis, Hx Legally Blind, Hx Deafness Opthamlomology History: Denies: Hx Eye Prosthesis, Hx Legally Blind Neurological History: Denies: Hx Dementia Psychiatric History: Reports: Hx Anxiety, Hx Depression Denies: Hx Eating Disorder, Hx of Violent Episodes Against Others - Surgical History Surgery Procedure, Year, and Place: Appendectomy, T & A - Immunization History Date of Tetanus Vaccine: unk Date of Influenza Vaccine: fall 2017 Infectious Disease History: No Infectious Disease History: Reports: History Other Infectious Disease - [place] Denies: Hx Clostridium Difficile, Hx Hepatitis, Hx Human Immunodeficiency Virus (HIV), Hx of Known/Suspected MRSA, Hx Shingles, Hx Tuberculosis, Hx Known/ Suspected VRE, Hx Known/Suspected VRSA, Traveled Outside the [place] in Last 30 Days - Family History Known Family History: Positive: Hypertension, Diabetes, Respiratory Disease - brother has asthma , Other - DVT - Social History Alcohol Use: Rare Alcohol Amount: couple times per month Hx Substance Use: Yes Substance Use Type: Reports: Marijuana Substance Use Comment - Amount & Last Used: daily, this morning Hx Tobacco Use: Yes Smoking Status (MU): Heavy Every Day Tobacco Smoker Type: Cigarettes Amount Used/How Often: 1 ppd Review of Systems Negative: Chest Pain Positive: Shortness Of Breath Positive: Myalgia - back pain All Other Systems Reviewed And Are Negative: Yes Physical Exam - Summary Physical Exam Summary: GENERAL: Patient is a well-developed and nourished F who is lying comfortable in the stretcher. Patient is not in any acute respiratory distress. HEAD AND FACE: Normocephalic EYES: PERRLA, EOMI x 2. EARS: Hearing grossly intact. MOUTH: Oropharynx within normal limits. NECK: Supple, trachea is midline, no adenopathy, no JVD, no carotid bruit. CHEST: Symmetric, no tenderness to palpation LUNGS: Clear to auscultation bilaterally. No wheezing or crackles. CVS: Regular rate and rhythm, S1 and S2 present, no murmurs or gallops appreciated. ABDOMEN: Soft, non-tender. Bowel sounds are normal. No abnormal abdominal pulsations. EXTREMITIES: Full ROM in all major joints, no edema, no cyanosis or clubbing. Tenderness in the thoracic spine as well as in her paraspinal area. Diffuse tenderness across her upper back. NEURO: Alert and oriented x 3. No acute neurological deficits. Speech is normal and follows commands. SKIN: Dry and warm Triage Information Reviewed: Yes Vital Signs On Initial Exam: Initial Vitals Temp Pulse Resp BP Pulse Ox 98.2 F 116 18 121/68 100 12/17/18 08:34 12/17/18 08:34 12/17/18 08:34 12/17/18 08:34 12/17/18 08:34 Vital Signs Reviewed: Yes Diagnostics - Vital Signs Vital Signs Temp Pulse Resp BP Pulse Ox 12/17/18 09:08 105 116/71 100 12/17/18 09:07 94 100 12/17/18 08:34 98.2 F 116 18 121/68 100 - Laboratory Lab Results: Lab Results 12/17/18 12/17/18 12/17/18 Range/Units 09:19 09:19 09:19 WBC 9.0 (3.5-10.8) 10^3/uL RBC 4.01 (3.70-4.87) 10^6 /uL Hgb 13.0 (12.0-16.0) g/dL Hct 37 (35-47) % MCV 93 (80-97) fL MCH 32 H (27-31) pg MCHC 35 (31-36) g/dL RDW 13 (10-15) % Plt Count 354 (150-450) 10^3/uL MPV 7.0 L (7.4-10.4) fL Neut % (Auto) 74.8 % Lymph % (Auto) 18.4 % [place] % (Auto) 5.7 % Eos % (Auto) 0.8 % Baso % (Auto) 0.3 % Absolute Neuts (auto) 6.7 (1.5-7.7) 10^3/ul Absolute Lymphs (auto) 1.7 (1.0-4.8) 10^3/ul Absolute Monos (auto) 0.5 (0-0.8) 10^3/ul Absolute Eos (auto) 0.1 (0-0.6) 10^3/ul Absolute Basos (auto) 0.0 (0-0.2) 10^3/ul Absolute Nucleated RBC 0.0 10^3/ul Nucleated RBC % 0.0 Sodium 139 (135-145) mmol/L Potassium 3.8 (3.5-5.0) mmol/L Chloride 105 (101-111) mmol/L Carbon Dioxide 28 (22-32) mmol/L Anion Gap 6 (2-11) mmol/L BUN 8 (6-24) mg/dL Creatinine 0.62 (0.51-0.95) mg/dL Est GFR ( Amer) 145.6 (>60) Est GFR (Non-Af Amer) 120.4 (>60) BUN/Creatinine Ratio 12.9 (8-20) Glucose 101 H (70-100) mg/dL Lactic Acid 1.1 (0.5-2.0) mmol/L Calcium 9.6 (8.6-10.3) mg/dL Total Bilirubin 0.30 (0.2-1.0) mg/dL AST 56 H (13-39) U/L ALT 49 (7-52) U/L Alkaline Phosphatase 88 (34-104) U/L Troponin I 0.00 (<0.04) ng/mL B-Natriuretic Peptide (<=100) pg/mL Total Protein 7.2 (6.4-8.9) g/dL Albumin 4.5 (3.2-5.2) g/dL Globulin 2.7 (2-4) g/dL Albumin/Globulin Ratio 1.7 (1-3) Beta HCG, Quant Pending 12/17/18 Range/Units 09:19 WBC (3.5-10.8) 10^3/uL RBC (3.70-4.87) 10^6 /uL Hgb (12.0-16.0) g/dL Hct (35-47) % MCV (80-97) fL MCH (27-31) pg MCHC (31-36) g/dL RDW (10-15) % Plt Count (150-450) 10^3/uL MPV (7.4-10.4) fL Neut % (Auto) % Lymph % (Auto) % [place] % (Auto) % Eos % (Auto) % Baso % (Auto) % Absolute Neuts (auto) (1.5-7.7) 10^3/ul Absolute Lymphs (auto) (1.0-4.8) 10^3/ul Absolute Monos (auto) (0-0.8) 10^3/ul Absolute Eos (auto) (0-0.6) 10^3/ul Absolute Basos (auto) (0-0.2) 10^3/ul Absolute Nucleated RBC 10^3/ul Nucleated RBC % Sodium (135-145) mmol/L Potassium (3.5-5.0) mmol/L Chloride (101-111) mmol/L Carbon Dioxide (22-32) mmol/L Anion Gap (2-11) mmol/L BUN (6-24) mg/dL Creatinine (0.51-0.95) mg/dL Est GFR ( Amer) (>60) Est GFR (Non-Af Amer) (>60) BUN/Creatinine Ratio (8-20) Glucose (70-100) mg/dL Lactic Acid (0.5-2.0) mmol/L Calcium (8.6-10.3) mg/dL Total Bilirubin (0.2-1.0) mg/dL AST (13-39) U/L ALT (7-52) U/L Alkaline Phosphatase (34-104) U/L Troponin I (<0.04) ng/mL B-Natriuretic Peptide 21 (<=100) pg/mL Total Protein (6.4-8.9) g/dL Albumin (3.2-5.2) g/dL Globulin (2-4) g/dL Albumin/Globulin Ratio (1-3) Beta HCG, Quant Result Diagrams: 12/17/18 09:19 12/17/18 09:19 Lab Statement: Any lab studies that have been ordered have been reviewed, and results considered in the medical decision making process. - Radiology CXR Radiology Interpretation Completed By: Radiologist Summary of Radiographic Findings: No active cardiopulmonary disease. ED physician has reviewed this report. T-spine XR Radiology Interpretation Completed By: Radiologist Summary of Radiographic Findings: Scoliosis. Mild degenerative disc disease. ED physician has reviewed this report. - EKG 0919 Cardiac Rate: NL - 90bpm EKG Rhythm: Sinus Rhythm ST Segment: Normal Ectopy: None Summary of EKG Findings: EKG at 0919 shows NSR at 90bpm with nml intervals and no ischemic changes. Re-Evaluation - Re-Evaluation 1st re-eval Re-Evaluation Time: 11:45 Change: Improved Comment: Pt reports feeling much better. Back Pain Course/Dx - Course Course Of Treatment: Pt is a 23 y/o F presenting to the ED with a chief complaint of back pain initially onset last week. The pain is in her upper back diffusely, and she also reports SOB, but denies CP. Sx worsened with deep breaths. 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 She is diffusely tender across her upper back on exam. EKG at 0919 shows NSR at 90bpm with nml intervals and no ischemic changes. Pts labs show MCH of 32, MPV of 7.0, and AST of 56. All other lab results are WNL. CXR shows: No active cardiopulmonary disease. T-spine XR shows: Scoliosis. Mild degenerative disc disease. In the ED course, the pt was given Benadryl 25mg IV, Toradol 30mg IV push, 10mg Reglan, and fluids. The pt reports that she is feeling better. She will be d/c'ed with dx including back pain, DDD of the thoracic spine, scoliosis, and headache. She is hemodynamically stable and safe for discharge. Strict return precautions given, she will otherwise f/u with her PCP. - Diagnoses Provider Diagnoses: Back pain, Degenerative disc disease, thoracic, Scoliosis, Headache Discharge - Sign-Out/Discharge Documenting (check all that apply): Patient Departure Patient Received Moderate/Deep Sedation with Procedure: No - Discharge Plan Condition: Stable Disposition: HOME Prescriptions: Cyclobenzaprine TAB* [Flexeril 10 MG TAB*] 10 mg PO TID PRN #20 tab PRN Reason: Pain - Moderate Ibuprofen TAB* [Motrin TAB* 600 MG] 600 mg PO Q6H PRN #20 tab MDD 4 PRN Reason: Pain - Mild predniSONE [Prednisone 20 MG TAB] 20 mg PO DAILY #4 tablet Patient Education Materials: Back Pain (ED), Degenerative Disc Disease (ED) Forms: *Work Release Referrals: [facility] [Outside] Additional Instructions: Please follow up with your primary care provider within the next 2-3 days. Return to the emergency department with any new or worsening symptoms. - Billing Disposition and Condition Condition: STABLE Disposition: Home - Attestation Statements Document Initiated by Daniel: Yes Documenting Scribe: Jolly Bedolla Provider For Whom Daniel is Documenting (Include Credential): Silvina Rivers MD. Scribe Attestation: Jolly Stringer scribed for Silvina Rivers MD. on 12/17/18 at 1253. Scribe Documentation Reviewed: Yes Provider Attestation: The documentation as recorded by the Jolly campa accurately reflects the service I personally performed and the decisions made by Nadege cedeno MD. Status of Scribe Document: Viewed
[2018-12-17] MEDS ORDERED: Ketorolac INJ* 30 MG/ML 1 ML VIAL IV PUSH ONE (10:18)
[2018-12-17] MEDS ORDERED: Cyclobenzaprine TAB* 10 MG PO ONE (10:59)
[2018-12-17] MEDS ORDERED: Dexamethasone IV* 4 MG/ML 1 ML (4 MG) IM ONE (10:59)
[2018-12-17 12:14] VITALS: BP 113/68
== END 2018-12-17 12:16 | disposition home or self-care (01) ==
LOC: ED 08:31
DX: M51.34 Other intervertebral disc degeneration, thoracic region (principal); M41.9 Scoliosis, unspecified; R51 Headache; M54.9 Dorsalgia, unspecified; F17.210 Nicotine dependence, cigarettes, uncomplicated; R06.02 Shortness of breath
CPT/HCPCS: 36415; 71046; 72070; 80053; 83605; 83880; 84484; 84702; 85025; 85379; 85610; 85730; 93005; 96361; 96372; 96374; 96375; 99283; A9270-GY; J1100; J1200; J1885; J2765

== ENCOUNTER 2019-05-29 09:31 | Emergency (ER) | payer OTHER ==
[2019-05-29 09:46] VITALS: BP 107/52
--- NOTE | 2019-05-29 09:58 | UC ---
UC General HPI - HPI Summary HPI Summary: Works in a daycare. Started with cough and URI symptoms about 6 days ago. Now concerned about wheezing and worsening cough. Chills and subjective fevers. + Diarrhea. No N/V. No rash. DId get her flu shot. Did have to use an inhaler many years ago when she had bronchitis. 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 Meds: reviewed. Doing dayquil and tea with honey - neither of which seem to help. - History of Current Complaint Chief Complaint: UCGeneralIllness Stated Complaint: COUGH WHEEZING Time Seen by Provider: 05/29/19 09:41 Hx Last Menstrual Period: 05/28/19 Pain Intensity: 1 - Allergy/Home Medications Allergies/Adverse Reactions: Allergies Allergy/AdvReac Type Severity Reaction Status Date / Time Latex, Natural Rubber Allergy Severe Rash Verified 05/29/19 09:38 Home Medications: Home Medications D-Methorphan/PE/Acetaminophen [Daytime Cold Multi-Symp Gelcap] 1 each PO ONCE [History Confirmed 05/29/19] PMH/Surg Hx/FS Hx/Imm Hx Previously Healthy: Yes - Surgical History Surgical History: Yes Surgery Procedure, Year, and Place: Appendectomy, T & A - Family History Known Family History: Positive: Hypertension, Diabetes, Respiratory Disease - brother has asthma , Other - DVT - Social History Alcohol Use: Daily Alcohol Amount: 1 glass wine/ day Substance Use Type: Marijuana Substance Use Comment - Amount & Last Used: daily Smoking Status (MU): Former Smoker Type: Cigarettes Amount Used/How Often: 1 ppd Length of Time of Smoking/Using Tobacco: 5 years Have You Smoked in the Last Year: Yes When Did the Patient Quit Smoking/Using Tobacco: April 2019 Household Exposure Type: Cigarettes - Immunization History Most Recent Influenza Vaccination: season Review of Systems All Other Systems Reviewed And Are Negative: Yes Constitutional: Positive: Chills ENT: Positive: Sinus Congestion Respiratory: Positive: Cough Gastrointestinal: Positive: Diarrhea Physical Exam Triage Information Reviewed: Yes Appearance: Well-Appearing Vital Signs: Initial Vital Signs Temp 98.1 F 05/29/19 09:40 Pulse 73 05/29/19 09:40 Resp 16 05/29/19 09:40 BP 107/52 05/29/19 09:40 Pulse Ox 100 05/29/19 09:40 ENT: Positive: Pharyngeal erythema, Nasal congestion, Other - clear fluid in TM' s b/l Neck: Positive: Supple, Nontender Respiratory: Positive: Other: - rhonchi and expiratory wheeze over LML No increase in work of breathing Cardiovascular: Positive: RRR, No Murmur Skin Exam: Normal Course/Dx - Course Course Of Treatment: This is a 24 yr old with cough and wheeze Suspect reactive airway disease and likely atypical pneumonia No respiratory distress Nontoxic appearing Plan REcommend starting the medrol dose pack and azithromycin as prescribed Use Albuterol inhaler as directed as needed with spacer Continue with dayquil or a decongestant Continue to rest, fluids and ibuprofen as needed for pain/fever If symptoms persist or worsen, recommend follow up with PCP or return to urgent care - Diagnoses Provider Diagnosis: Reactive airway disease, Pneumonia Discharge ED - Sign-Out/Discharge Documenting (check all that apply): Patient Departure All imaging exams completed and their final reports reviewed: No Studies - Discharge Plan Condition: Fair Disposition: HOME Prescriptions: Albuterol HFA INHALER* [Ventolin HFA Inhaler*] 2 puff INH Q4H PRN #1 mdi PRN Reason: Cough Azithromycin TAB* [Zithromax TAB (Z-KATELYNN) 250 mg #6 tabs] 2 tab PO .TODAY, THEN 1 DAILY #1 katelynn methylPREDNISolone [Medrol Dosepak 4 MG*] 0 mg PO .SEE KATELYNN INSTRUCTION #1 packet Spacer/Holding Chamber (NF) [Easivent CHAMBER (NF)] 1 applic INH Q4HR PRN #1 device PRN Reason: Cough Patient Education Materials: Reactive Airways Disease (ED), Pneumonia (ED) Referrals: Tri Winslow MD [Primary Care Provider] - Additional Instructions: REcommend starting the medrol dose pack and azithromycin as prescribed Use Albuterol inhaler as directed as needed with spacer Continue with dayquil or a decongestant Continue to rest, fluids and ibuprofen as needed for pain/fever If symptoms persist or worsen, recommend follow up with PCP or return to urgent care - Billing Disposition and Condition Condition: FAIR Disposition: Home
== END 2019-05-29 10:06 | disposition home or self-care (01) ==
LOC: UCEAST 09:31
DX: J45.909 Unspecified asthma, uncomplicated (principal); J18.9 Pneumonia, unspecified organism; R19.7 Diarrhea, unspecified; R09.89 Other specified symptoms and signs involving the circulatory and respiratory systems; Z91.040 Latex allergy status; Z87.891 Personal history of nicotine dependence
CPT/HCPCS: 99212; G0463